=== PATIENT | male | born 1965 | race Caucasian/White ===

== ENCOUNTER 2021-10-04 09:25 | Inpatient (IN) | payer MEDICAID ==
[~2021-10-04] VITALS: Ht 182.9 cm; Wt 84.1 kg
[2021-10-04] MEDS ORDERED: normal saline 1000ML IV soln IV ONE (10:40)
[2021-10-04] MEDS ORDERED: ketorolac tromethamine 15mg/ml inj. IV ONE (10:40)
[2021-10-04 11:22] LABS: BASOPHILS % (AUTO) 0.5 % (0-1); EOSINOPHILS % (AUTO) 0.2 % (0-6); HEMATOCRIT 43.5 % (42.0-52.0); HEMOGLOBIN 15.1 g/dl (14.0-17.9); LYMPHOCYTES # (AUTO) 0.7 X10'3 (1.1-4.8); LYMPHOCYTES % (AUTO) 8.1 % (21-51); MEAN CORPUSCULAR HGB CONC 34.8 g/dL (33.0-36.5); MEAN CORPUSCULAR VOLUME 91.8 FL (78-98); MEAN PLATELET VOLUME 8.7 FL (7.4-10.4); MONOCYTES # (AUTO) 0.3 X10'3 (0-0.9); MONOCYTES % (AUTO) 3.9 % (2-12); NEUTROPHILS # (AUTO) 7.2 X10'3 (1.8-7.7); NEUTROPHILS % (AUTO) 87.3 % (42-75); PLATELET COUNT 162 X10'3 (140-440); RED BLOOD COUNT 4.73 X10'6 (4.70-6.10); RED CELL DISTRIBUTION WIDTH 12.7 % (11.5-14.5); WHITE BLOOD COUNT 8.2 X10'3 (4.5-11.0)
[2021-10-04 11:50] LABS: ALANINE AMINOTRANSFERASE 29 U/L (12-78); ALBUMIN 3.1 G/DL (3.4-5.0); ALBUMIN/GLOBULIN RATIO 0.8 (1.1-1.5); ALKALINE PHOSPHATASE 80 IU/L (46-116); ANION GAP 10 (8-16); ASPARTATE AMINO TRANSFERASE 22 U/L (10-37); BILIRUBIN,TOTAL 1.3 MG/DL (0.1-1.0); BLOOD UREA NITROGEN 16 MG/DL (7-18); BUN/CREATININE RATIO 13.6 (5.4-32.0); CALCIUM 8.4 MG/DL (8.5-10.1); CHLORIDE 100 MMOL/L (99-107); CREATININE 1.18 MG/DL (0.60-1.10); GLUCOSE 143 MG/DL (70-104); MAGNESIUM 1.8 MG/DL (1.5-2.4); POTASSIUM 3.6 MMOL/L (3.5-5.1); SODIUM 135 MMOL/L (135-145); TOTAL CARBON DIOXIDE 24.7 MMOL/L (24-32); TOTAL PROTEIN 6.9 G/DL (6.4-8.2); eGFR 64 ML/MIN
[2021-10-04 13:50] LABS: CLARITY,URINE CLEAR (Clear); COLOR,URINE YELLOW (Yellow); GLUCOSE, URINE NEGATIVE (Neg); KETONES,URINE NEGATIVE (Neg); LEUKOCYTE ESTERASE ,URINE NEGATIVE (Neg); NITRITES, URINE NEGATIVE (Neg); OCCULT BLOOD,URINE NEGATIVE (Neg); PH,URINE 6.5 (4.8-8.0); PROTEIN,URINE 30 mg/dl (Neg)
[2021-10-04 13:53] LABS: UA COLLECTION TYPE NON-SPECIFIED
[2021-10-04 13:57] LABS: BACTERIA,URINE NONE SEEN /HPF (Neg); MUCUS STRANDS NONE SEEN /LPF (Neg); RBC,URINE NONE SEEN /HPF (0-2); SQUAMOUS EPITHELIAL CELL,UR FEW /LPF (FEW); WBC,URINE 0-4 /HPF (0-4)
[2021-10-04] MEDS ORDERED: acetaminophen 325mg tablet PO ONE (15:00)
[2021-10-04] MEDS ORDERED: morphine 4 MG/ML inj SYRINge IV ONE (15:35)
[2021-10-04] MEDS ORDERED: ondansetron/PF 4mg/2ml inj IV ONE (15:35)
[2021-10-04] MEDS ORDERED: mag hydrox/Alum hydrox/simeth 30ml oral suspension PO PRN (15:50)
[2021-10-04] MEDS ORDERED: morphine 2 MG/ML inj. syringe IV PRN (15:50)
[2021-10-04] MEDS ORDERED: magnesium hydroxide 30ml (MOM) UD suspension PO PRN (15:50)
[2021-10-04] MEDS ORDERED: HYDROcodone/acetaminophen 5mg/325mg tablet PO PRN (15:50)
[2021-10-04] MEDS ORDERED: ondansetron 4mg rapidly disintigrating tab PO PRN (15:50)
[2021-10-04] MEDS ORDERED: magnesium 4gm in 100ml NS 100 ML IV PRN (15:50)
[2021-10-04] MEDS ORDERED: acetaminophen 650mg rectal suppository RC PRN (15:50)
[2021-10-04] MEDS ORDERED: magnesium Cl slow-release 64mg tablet PO PRN (15:50)
[2021-10-04] MEDS ORDERED: potassium Cl 20 mEq SR tablet PO PRN (15:50)
[2021-10-04] MEDS ORDERED: bisacodyl 10mg suppository rectal RC PRN (15:50)
[2021-10-04] MEDS ORDERED: potassium CL 10mEq/100ml bag 100 ML IV PRN (15:50)
[2021-10-04] MEDS ORDERED: magnesium 2GM in 50ml NS 50 ML IV PRN (15:50)
[2021-10-04] MEDS ORDERED: metoclopramide 5 mg/ml inj IV PRN (15:50)
[2021-10-04 16:43] LABS: MAGNESIUM 1.5 MG/DL (1.5-2.4); POTASSIUM 3.5 MMOL/L (3.5-5.1)
[2021-10-04] MEDS ORDERED: cefTRIAXone 1g/NS 100ml IVPB 100 ML IV ONE (16:55)
[2021-10-04] MEDS ORDERED: doxycycline inj 200 MG in normal saline 250ml IV soln 250 ML IV ONE (16:55)
[2021-10-04] MEDS ORDERED: NO HOME MEDS (17:40)
[2021-10-04] MEDS: normal saline 1000ml 1,000 ML IV SCH (18:12)
[2021-10-04] MEDS: heparin, porcine 5000 units/ml vial SQ SCH (20:00)
[2021-10-04] MEDS: docusate sod 100mg capsule PO SCH (20:00)
[2021-10-04] MEDS: K and/or MAG REPLACEMENT MC SCH (20:00)
[2021-10-04] MEDS: morphine 2 MG/ML inj. syringe IV PRN (20:15)
[2021-10-04] MEDS: doxycycline inj 100 MG in normal saline 100ml IV soln 100 ML IV SCH (21:41)
--- NOTE | 2021-10-04 21:43 | NUR ---
This song writer spoke with pharmacy and pharmacy stated max daily dose for respiratory concern is 200mg of doxycycline. Stated to hold the evening dose of 100mg doxycycline.
[2021-10-04] MEDS: ipratropium/albuterol 3ml nebule NEB PRN (22:55)
[2021-10-04] MEDS: acetaminophen 325mg tablet PO PRN (23:53)
[2021-10-05 01:14] LABS: BASOPHILS % (AUTO) 0.6 % (0-1); EOSINOPHILS % (AUTO) 0.2 % (0-6); HEMATOCRIT 37.5 % (42.0-52.0); HEMOGLOBIN 13.3 g/dl (14.0-17.9); LYMPHOCYTES # (AUTO) 0.6 X10'3 (1.1-4.8); LYMPHOCYTES % (AUTO) 8.3 % (21-51); MEAN CORPUSCULAR HEMOGLOBIN 32.3 PG (27.0-31.0); MEAN CORPUSCULAR HGB CONC 35.4 g/dL (33.0-36.5); MEAN CORPUSCULAR VOLUME 91.3 FL (78-98); MEAN PLATELET VOLUME 8.4 FL (7.4-10.4); MONOCYTES # (AUTO) 0.4 X10'3 (0-0.9); MONOCYTES % (AUTO) 5.4 % (2-12); NEUTROPHILS # (AUTO) 6.6 X10'3 (1.8-7.7); NEUTROPHILS % (AUTO) 85.5 % (42-75); PLATELET COUNT 149 X10'3 (140-440); RED BLOOD COUNT 4.11 X10'6 (4.70-6.10); RED CELL DISTRIBUTION WIDTH 12.6 % (11.5-14.5); WHITE BLOOD COUNT 7.7 X10'3 (4.5-11.0)
[2021-10-05 01:30] LABS: ALANINE AMINOTRANSFERASE 24 U/L (12-78); ALBUMIN 2.6 G/DL (3.4-5.0); ALBUMIN/GLOBULIN RATIO 0.9 (1.1-1.5); ALKALINE PHOSPHATASE 65 IU/L (46-116); ANION GAP 10 (8-16); ASPARTATE AMINO TRANSFERASE 20 U/L (10-37); BLOOD UREA NITROGEN 14 MG/DL (7-18); BUN/CREATININE RATIO 12.4 (5.4-32.0); CHLORIDE 102 MMOL/L (99-107); CREATININE 1.13 MG/DL (0.60-1.10); GLUCOSE 126 MG/DL (70-104); MAGNESIUM 1.6 MG/DL (1.5-2.4); POTASSIUM 3.4 MMOL/L (3.5-5.1); SODIUM 134 MMOL/L (135-145); TOTAL CARBON DIOXIDE 22.1 MMOL/L (24-32); TOTAL PROTEIN 5.6 G/DL (6.4-8.2); eGFR 67 ML/MIN
[2021-10-05 02:00] VITALS: BP 141/91
--- NOTE | 2021-10-05 03:10 | NUR ---
Todd RIVERA O/N 5199 - new admit Kavin Mcintyre rm 4023b - R sided Pneumonia. Patient has been spiking a fever - received tylenol 3 hours ago for a temp of 103.5, temp is now 103.2 - maybe Ibuprofen? also pt. requesting guaifenesin
[2021-10-05] MEDS: ipratropium/albuterol 3ml nebule NEB PRN ×2 (03:45→19:52)
[2021-10-05] MEDS: guaiFENesin ER 600mg tablet PO PRN ×2 (03:53→19:12)
[2021-10-05] MEDS: morphine 2 MG/ML inj. syringe IV PRN ×2 (03:53→19:18)
[2021-10-05] MEDS: ondansetron/PF 4mg/2ml inj IV PRN (03:53)
[2021-10-05] MEDS: normal saline 1000ml 1,000 ML IV SCH (04:20)
[2021-10-05] MEDS: potassium Cl 20 mEq SR tablet PO PRN ×3 (05:08→19:15)
[2021-10-05] MEDS: ibuprofen tablet 400 MG TABLET PO PRN ×3 (05:20→21:54)
--- NOTE | 2021-10-05 05:56 | NUR ---
Todd RIVERA O/N 5199 - Pt. Kavin Emilymac's temperature continues to climb - was 102.3 at 0330, 104.5 at 0430, 105.2 at 0500, and a subsequent rectal temperature was 104.3 at 0520. Do you want to draw additional labs?
--- NOTE | 2021-10-05 06:24 | NUR ---
Spoke with the Hospitalist - no new orders obtained for patient for subsequent labs - to continue the cooling measures currently employed such as icepacks, fans, etc.
--- NOTE | 2021-10-05 07:06 | NUR ---
Problems reprioritized. Patient report given, questions answered & plan of care reviewed with Ilya RIVERA.
[2021-10-05 07:24] VITALS: BP 142/83
[2021-10-05] MEDS: cefTRIAXone 1g/NS 100ml IVPB 100 ML IV SCH (07:50)
[2021-10-05] MEDS: K and/or MAG REPLACEMENT MC SCH ×2 (08:00→20:00)
[2021-10-05] MEDS: docusate sod 100mg capsule PO SCH ×2 (08:16→19:15)
[2021-10-05] MEDS: heparin, porcine 5000 units/ml vial SQ SCH ×2 (08:17→19:15)
[2021-10-05] MEDS: doxycycline inj 100 MG in normal saline 100ml IV soln 100 ML IV SCH ×2 (09:40→19:27)
[2021-10-05 10:00] VITALS: BP_SYST 106; BP_SYST 112; BP_DIAS 63; BP_DIAS 70
[2021-10-05] MEDS: acetaminophen 325mg tablet PO PRN ×2 (11:11→19:13)
[2021-10-05 14:00] VITALS: BP 143/84
[2021-10-05] MEDS ORDERED: iohexol 300mg/ml 100ml inj. ONE (14:14)
[2021-10-05 18:30] VITALS: BP 142/83
[2021-10-05] MEDS: HYDROcodone/acetaminophen 10/325mg tab PO PRN (21:55)
[2021-10-05 22:00] VITALS: BP 130/96
[2021-10-06] MEDS: normal saline 1000ml 1,000 ML IV SCH ×2 (00:09→19:41)
[2021-10-06] MEDS: HYDROcodone/acetaminophen 10/325mg tab PO PRN ×4 (04:17→22:04)
[2021-10-06] MEDS: acetaminophen 325mg tablet PO PRN ×3 (04:18→18:13)
[2021-10-06] MEDS: ipratropium/albuterol 3ml nebule NEB PRN ×2 (04:27→11:48)
[2021-10-06 06:00] VITALS: BP 130/78
[2021-10-06 06:35] LABS: BASOPHILS % (AUTO) 0.3 % (0-1); EOSINOPHILS % (AUTO) 0.3 % (0-6); HEMATOCRIT 36.7 % (42.0-52.0); HEMOGLOBIN 12.8 g/dl (14.0-17.9); LYMPHOCYTES # (AUTO) 0.6 X10'3 (1.1-4.8); LYMPHOCYTES % (AUTO) 8.6 % (21-51); MEAN CORPUSCULAR HEMOGLOBIN 32.3 PG (27.0-31.0); MEAN CORPUSCULAR HGB CONC 34.9 g/dL (33.0-36.5); MEAN CORPUSCULAR VOLUME 92.4 FL (78-98); MEAN PLATELET VOLUME 8.8 FL (7.4-10.4); MONOCYTES # (AUTO) 0.4 X10'3 (0-0.9); MONOCYTES % (AUTO) 5.7 % (2-12); NEUTROPHILS # (AUTO) 6.2 X10'3 (1.8-7.7); NEUTROPHILS % (AUTO) 85.1 % (42-75); PLATELET COUNT 156 X10'3 (140-440); RED BLOOD COUNT 3.97 X10'6 (4.70-6.10); RED CELL DISTRIBUTION WIDTH 13.1 % (11.5-14.5); WHITE BLOOD COUNT 7.3 X10'3 (4.5-11.0)
--- NOTE | 2021-10-06 06:36 | NUR ---
Problems reprioritized. Patient report given, questions answered & plan of care reviewed with Shawna RIVERA.
[2021-10-06 06:54] LABS: ALANINE AMINOTRANSFERASE 20 U/L (12-78); ALBUMIN 2.3 G/DL (3.4-5.0); ALBUMIN/GLOBULIN RATIO 0.6 (1.1-1.5); ALKALINE PHOSPHATASE 69 IU/L (46-116); ANION GAP 13 (8-16); ASPARTATE AMINO TRANSFERASE 24 U/L (10-37); BILIRUBIN,TOTAL 0.7 MG/DL (0.1-1.0); BLOOD UREA NITROGEN 11 MG/DL (7-18); BUN/CREATININE RATIO 9.6 (5.4-32.0); CALCIUM 7.5 MG/DL (8.5-10.1); CHLORIDE 102 MMOL/L (99-107); CREATININE 1.15 MG/DL (0.60-1.10); GLUCOSE 140 MG/DL (70-104); POTASSIUM 3.5 MMOL/L (3.5-5.1); SODIUM 134 MMOL/L (135-145); TOTAL CARBON DIOXIDE 19.3 MMOL/L (24-32); TOTAL PROTEIN 5.9 G/DL (6.4-8.2); eGFR 66 ML/MIN
--- NOTE | 2021-10-06 07:28 | NUR ---
Patient in room ORTHO 4023. I have received report from NICOLE Brooks and had the opportunity to ask questions and assume patient care.
[2021-10-06] MEDS: cefTRIAXone 1g/NS 100ml IVPB 100 ML IV SCH (07:41)
[2021-10-06] MEDS: heparin, porcine 5000 units/ml vial SQ SCH ×2 (07:42→22:03)
[2021-10-06] MEDS: docusate sod 100mg capsule PO SCH ×2 (07:43→22:03)
[2021-10-06] MEDS: K and/or MAG REPLACEMENT MC SCH ×2 (08:00→20:00)
[2021-10-06] MEDS: doxycycline inj 100 MG in normal saline 100ml IV soln 100 ML IV SCH ×2 (08:32→22:03)
[2021-10-06 10:00] VITALS: BP 138/85
[2021-10-06 14:00] VITALS: BP 144/91
[2021-10-06] MEDS: guaiFENesin ER 600mg tablet PO PRN (15:21)
[2021-10-06 18:00] VITALS: BP 148/95
--- NOTE | 2021-10-06 18:03 | NUR ---
Patient is reporting lightheadedness and just not feeling good. Increased his O2 to 6L and paged respiratory.
--- NOTE | 2021-10-06 18:50 | NUR ---
Patient in room ORTHO 4023. I have received report from Shawna RIVERA and had the opportunity to ask questions and assume patient care.
--- NOTE | 2021-10-06 19:02 | NUR ---
Problems reprioritized. Patient report given, questions answered & plan of care reviewed with NICOLE Shaikh.
[2021-10-06 22:00] VITALS: BP 157/87
[2021-10-07] MEDS: ondansetron/PF 4mg/2ml inj IV PRN (01:05)
[2021-10-07] MEDS: morphine 2 MG/ML inj. syringe IV PRN (01:08)
[2021-10-07 02:00] VITALS: BP 158/98
[2021-10-07] MEDS: temazepam 15mg capsule PO PRN ×2 (03:47→22:07)
[2021-10-07 06:00] VITALS: BP 154/89
[2021-10-07] MEDS: normal saline 1000ml 1,000 ML IV SCH ×2 (06:20→22:08)
--- NOTE | 2021-10-07 06:22 | NUR ---
Problems reprioritized. Patient report given, questions answered & plan of care reviewed with Shawna RIVERA.
--- NOTE | 2021-10-07 06:56 | NUR ---
Patient in room ORTHO 4023. I have received report from NICOLE Correa and had the opportunity to ask questions and assume patient care.
[2021-10-07 07:25] LABS: BASOPHILS % (AUTO) 0.2 % (0-1); EOSINOPHILS # (AUTO) 0.1 X10'3 (0-0.9); HEMATOCRIT 35.7 % (42.0-52.0); HEMOGLOBIN 12.3 g/dl (14.0-17.9); LYMPHOCYTES % (AUTO) 14.4 % (21-51); MEAN CORPUSCULAR HEMOGLOBIN 31.9 PG (27.0-31.0); MEAN CORPUSCULAR HGB CONC 34.6 g/dL (33.0-36.5); MEAN CORPUSCULAR VOLUME 92.1 FL (78-98); MEAN PLATELET VOLUME 8.3 FL (7.4-10.4); MONOCYTES # (AUTO) 0.6 X10'3 (0-0.9); MONOCYTES % (AUTO) 9.4 % (2-12); PLATELET COUNT 187 X10'3 (140-440); RED BLOOD COUNT 3.87 X10'6 (4.70-6.10); RED CELL DISTRIBUTION WIDTH 12.9 % (11.5-14.5); WHITE BLOOD COUNT 6.7 X10'3 (4.5-11.0)
[2021-10-07 07:51] LABS: ALANINE AMINOTRANSFERASE 28 U/L (12-78); ALBUMIN 2.2 G/DL (3.4-5.0); ALBUMIN/GLOBULIN RATIO 0.6 (1.1-1.5); ALKALINE PHOSPHATASE 76 IU/L (46-116); ANION GAP 8 (8-16); ASPARTATE AMINO TRANSFERASE 28 U/L (10-37); BILIRUBIN,TOTAL 0.5 MG/DL (0.1-1.0); BLOOD UREA NITROGEN 9 MG/DL (7-18); CALCIUM 7.5 MG/DL (8.5-10.1); CHLORIDE 100 MMOL/L (99-107); GLUCOSE 103 MG/DL (70-104); MAGNESIUM 2.2 MG/DL (1.5-2.4); POTASSIUM 4.1 MMOL/L (3.5-5.1); SODIUM 134 MMOL/L (135-145); TOTAL CARBON DIOXIDE 26.1 MMOL/L (24-32); TOTAL PROTEIN 5.7 G/DL (6.4-8.2); eGFR 77 ML/MIN
[2021-10-07] MEDS: cefTRIAXone 1g/NS 100ml IVPB 100 ML IV SCH (07:51)
[2021-10-07] MEDS: K and/or MAG REPLACEMENT MC SCH ×2 (08:00→20:00)
[2021-10-07] MEDS: DOXYCYCLINE 100MG CAPSULE PO SCH ×2 (08:44→16:59)
[2021-10-07] MEDS: heparin, porcine 5000 units/ml vial SQ SCH ×2 (08:45→20:39)
[2021-10-07] MEDS: docusate sod 100mg capsule PO SCH ×2 (08:45→20:38)
[2021-10-07 10:00] VITALS: BP 137/86
[2021-10-07] MEDS: HYDROcodone/acetaminophen 10/325mg tab PO PRN ×3 (11:16→20:45)
[2021-10-07 14:00] VITALS: BP 151/97
[2021-10-07 18:00] VITALS: BP 146/86
[2021-10-07] MEDS: lactose-reduced food (Ensure Enlive) - 237ml bottle PO SCH (18:00)
--- NOTE | 2021-10-07 18:39 | NUR ---
Problems reprioritized. Patient report given, questions answered & plan of care reviewed with NICOLE Quiñones.
[2021-10-07 22:00] VITALS: BP 145/92
[2021-10-08 02:00] VITALS: BP 159/95
[2021-10-08] MEDS: HYDROcodone/acetaminophen 10/325mg tab PO PRN (05:08)
[2021-10-08 05:44] LABS: BASOPHILS % (AUTO) 0.2 % (0-1); EOSINOPHILS # (AUTO) 0.2 X10'3 (0-0.9); EOSINOPHILS % (AUTO) 3.2 % (0-6); HEMATOCRIT 35.9 % (42.0-52.0); HEMOGLOBIN 12.4 g/dl (14.0-17.9); LYMPHOCYTES # (AUTO) 0.9 X10'3 (1.1-4.8); LYMPHOCYTES % (AUTO) 13.9 % (21-51); MEAN CORPUSCULAR HEMOGLOBIN 31.5 PG (27.0-31.0); MEAN CORPUSCULAR HGB CONC 34.5 g/dL (33.0-36.5); MEAN CORPUSCULAR VOLUME 91.3 FL (78-98); MONOCYTES # (AUTO) 0.8 X10'3 (0-0.9); MONOCYTES % (AUTO) 12.4 % (2-12); NEUTROPHILS # (AUTO) 4.6 X10'3 (1.8-7.7); NEUTROPHILS % (AUTO) 70.3 % (42-75); PLATELET COUNT 220 X10'3 (140-440); RED BLOOD COUNT 3.93 X10'6 (4.70-6.10); RED CELL DISTRIBUTION WIDTH 13.2 % (11.5-14.5); WHITE BLOOD COUNT 6.5 X10'3 (4.5-11.0)
[2021-10-08 05:48] LABS: ALANINE AMINOTRANSFERASE 56 U/L (12-78); ALBUMIN 2.3 G/DL (3.4-5.0); ALBUMIN/GLOBULIN RATIO 0.6 (1.1-1.5); ALKALINE PHOSPHATASE 77 IU/L (46-116); ANION GAP 6 (8-16); ASPARTATE AMINO TRANSFERASE 56 U/L (10-37); BILIRUBIN,TOTAL 0.5 MG/DL (0.1-1.0); BLOOD UREA NITROGEN 11 MG/DL (7-18); BUN/CREATININE RATIO 11.7 (5.4-32.0); CHLORIDE 101 MMOL/L (99-107); CREATININE 0.94 MG/DL (0.60-1.10); GLUCOSE 110 MG/DL (70-104); MAGNESIUM 2.2 MG/DL (1.5-2.4); POTASSIUM 3.5 MMOL/L (3.5-5.1); SODIUM 135 MMOL/L (135-145); TOTAL CARBON DIOXIDE 28.4 MMOL/L (24-32); TOTAL PROTEIN 5.9 G/DL (6.4-8.2); eGFR 83 ML/MIN
[2021-10-08 06:00] VITALS: BP 167/96
--- NOTE | 2021-10-08 06:48 | NUR ---
Problems reprioritized. Patient report given, questions answered & plan of care reviewed with CARMELINA RIVERA.
--- NOTE | 2021-10-08 07:06 | NUR ---
Patient in room ORTHO 4023. I have received report from NICOLE Quiñones and had the opportunity to ask questions and assume patient care.
[2021-10-08] MEDS: cefTRIAXone 1g/NS 100ml IVPB 100 ML IV SCH (07:38)
[2021-10-08] MEDS: DOXYCYCLINE 100MG CAPSULE PO SCH ×2 (07:39→16:44)
[2021-10-08] MEDS: docusate sod 100mg capsule PO SCH ×2 (07:39→20:09)
[2021-10-08] MEDS: lactose-reduced food (Ensure Enlive) - 237ml bottle PO SCH ×3 (07:40→18:24)
[2021-10-08] MEDS: heparin, porcine 5000 units/ml vial SQ SCH ×2 (07:40→20:10)
[2021-10-08] MEDS: ondansetron/PF 4mg/2ml inj IV PRN (07:57)
[2021-10-08] MEDS: K and/or MAG REPLACEMENT MC SCH ×2 (08:00→20:00)
--- NOTE | 2021-10-08 08:49 | NUR ---
PAGER ID: [phone] MESSAGE: Shawna [id number] Pako Mcintyre room 4023B blood pressure 166/101, HR 88. He does not have any PRN meds for HTN.
[2021-10-08 10:00] VITALS: BP 148/91
[2021-10-08 14:00] VITALS: BP 156/92
--- NOTE | 2021-10-08 14:52 | NUR ---
O2 Sat at rest on room air:_93__% If below 89%: Recovery O2 Sat at rest on ___LPM:___%:___% via (mask/nasal cannula, etc..) No further documentation is necessary. If O2 Sat did not drop below 89% on room air,ambulate patient on room air. O2 Sat while ambulating on room air:__94_% Recovery O2 Sat while ambulating on ___LPM:___% No further documentation is necessary. If patient does not drop below 89% while ambulating, he/she does not qualify for home O2.
[2021-10-08] MEDS: ibuprofen tablet 400 MG TABLET PO PRN (16:47)
[2021-10-08 19:00] VITALS: BP 162/95
--- NOTE | 2021-10-08 19:04 | NUR ---
Problems reprioritized. Patient report given, questions answered & plan of care reviewed with NICOLE Hood.
[2021-10-08 22:00] VITALS: BP 156/95
[2021-10-09 05:54] LABS: BASOPHILS % (AUTO) 0.5 % (0-1); EOSINOPHILS # (AUTO) 0.3 X10'3 (0-0.9); EOSINOPHILS % (AUTO) 4.5 % (0-6); HEMATOCRIT 35.1 % (42.0-52.0); HEMOGLOBIN 12.2 g/dl (14.0-17.9); LYMPHOCYTES # (AUTO) 1.6 X10'3 (1.1-4.8); LYMPHOCYTES % (AUTO) 28.4 % (21-51); MEAN CORPUSCULAR HEMOGLOBIN 31.5 PG (27.0-31.0); MEAN CORPUSCULAR HGB CONC 34.7 g/dL (33.0-36.5); MEAN PLATELET VOLUME 8.1 FL (7.4-10.4); MONOCYTES # (AUTO) 0.7 X10'3 (0-0.9); NEUTROPHILS % (AUTO) 53.6 % (42-75); PLATELET COUNT 260 X10'3 (140-440); RED BLOOD COUNT 3.86 X10'6 (4.70-6.10); RED CELL DISTRIBUTION WIDTH 13.1 % (11.5-14.5); WHITE BLOOD COUNT 5.7 X10'3 (4.5-11.0)
--- NOTE | 2021-10-09 06:12 | NUR ---
Patient in room ORTHO 4023. I have received report from Sana RIVERA and had the opportunity to ask questions and assume patient care.
[2021-10-09 06:21] LABS: ALANINE AMINOTRANSFERASE 83 U/L (12-78); ALBUMIN 2.3 G/DL (3.4-5.0); ALBUMIN/GLOBULIN RATIO 0.7 (1.1-1.5); ALKALINE PHOSPHATASE 81 IU/L (46-116); ANION GAP 7 (8-16); ASPARTATE AMINO TRANSFERASE 65 U/L (10-37); BILIRUBIN,TOTAL 0.5 MG/DL (0.1-1.0); BLOOD UREA NITROGEN 11 MG/DL (7-18); BUN/CREATININE RATIO 11.5 (5.4-32.0); CALCIUM 8.3 MG/DL (8.5-10.1); CHLORIDE 105 MMOL/L (99-107); CREATININE 0.96 MG/DL (0.60-1.10); GLUCOSE 105 MG/DL (70-104); POTASSIUM 3.6 MMOL/L (3.5-5.1); SODIUM 142 MMOL/L (135-145); TOTAL CARBON DIOXIDE 30.3 MMOL/L (24-32); TOTAL PROTEIN 5.8 G/DL (6.4-8.2); eGFR 81 ML/MIN
[2021-10-09 07:00] VITALS: BP 153/96
[2021-10-09] MEDS: DOXYCYCLINE 100MG CAPSULE PO SCH (07:32)
[2021-10-09] MEDS: cefTRIAXone 1g/NS 100ml IVPB 100 ML IV SCH (07:32)
[2021-10-09] MEDS: docusate sod 100mg capsule PO SCH (07:34)
[2021-10-09] MEDS: K and/or MAG REPLACEMENT MC SCH (07:34)
[2021-10-09] MEDS: heparin, porcine 5000 units/ml vial SQ SCH (07:34)
[2021-10-09] MEDS: lactose-reduced food (Ensure Enlive) - 237ml bottle PO SCH ×2 (07:34→12:55)
--- NOTE | 2021-10-09 09:35 | NUR ---
Initial: Pt admitted w/ acute respiratory failure secondary to PNA; and VINCENT per EMR. On 6L NC per documentation. Currently on Regular diet w/ avg intake 65% x 9 meals and Ensure Enlive TID was ordered, of which pt has consumed 100% of, overall meeting needs. Recommend decreasing frequency of ONS to BID. LBM 10/06 receiving routine colace. Will continue to monitor. Recs: 1. Continue Regular diet as tolerated 2. Ensure Enlive TID; decreased frequency to BID 3. Bowel care per rx 4. Scaled wts this admit Addendum: 10/09/21 at [address] Amended: Links added.
[2021-10-09 11:00] VITALS: BP 151/93
[2021-10-09] MEDS ORDERED: DOXY-224 PO (14:09)
[2021-10-09] MEDS ORDERED: ALBU18HF2 IH (14:09)
--- NOTE | 2021-10-09 15:15 | NUR ---
Pt discharged. IV removed. Discharge packet reviewed with patient and . Patient and verbalized understanding about information and education. Case management talk to the about making follow-up appointments. Patient and his packed up his belongings. Patient was escorted out via wheelchair to be driven home by his .
== END 2021-10-09 15:15 | disposition home or self-care (01) | DRG 139 ==
LOC: ER 09:26 → ED HOLD 15:51 → ORTHO 4S 10-05 01:15
PROVIDERS: ADMIT Family Medicine; ATTEND Family Medicine
PROC: BW241ZZ Computerized Tomography (CT Scan) of Chest and Abdomen using Low Osmolar Contrast (ICD-10-PCS; 2021-10-05)
PROC: 5A0945A Assistance with Respiratory Ventilation, 24-96 Consecutive Hours, High Flow/Velocity Cannula (ICD-10-PCS; principal; 2021-10-06)
DX: J18.9 Pneumonia, unspecified organism (principal); J96.01 Acute respiratory failure with hypoxia; N17.9 Acute kidney failure, unspecified; E87.1 Hypo-osmolality and hyponatremia; E78.5 Hyperlipidemia, unspecified; Z20.822 Contact with and (suspected) exposure to COVID-19; N18.9 Chronic kidney disease, unspecified; F17.220 Nicotine dependence, chewing tobacco, uncomplicated; Z85.528 Personal history of other malignant neoplasm of kidney; E87.6 Hypokalemia
CPT/HCPCS: 36415; 71045; 71046; 71260; 80053; 81001; 82948; 83605; 83735; 83880; 84132; 84145; 85025; 87040; 87070; 87081; 87502; 87503; 87635; 94640; 94667; 94668; 94760; 96361; 96374; 97161; 97530; 99285; C9803; G0378; J0696; J1644; J1885; J2270; J2405; J2765; J3490; J7030; J7050; Q9967